=== PATIENT | male | born 1970 | race Caucasian/White ===

== ENCOUNTER → 2018-03-19 | Outpatient (CLI) | payer OTHER ==
--- NOTE | ~2018-03-19 | 2DMMODE ---
[facility] [address] 2 D/M-MODE ECHOCARDIOGRAM Name: WANG ELIAS Room #: [facility]#: [id number] Admission: 03/19/18 Attend Phys: Kit Orellana Discharge: Date of : 72 Date of Service: 03/19/18 1420 Report #: [id number] THIS REPORT FOR: //name// APPROVED REPORT Study performed: 03/19/2018 13:01:21 EXAM: Comprehensive 2D, Doppler, and color-flow Echocardiogram Patient Location: Out-Patient Status: routine BSA: 2.11 HR: 75 bpm BP: 140/90 mmHg Rhythm: NSR Other Information Study Quality: Good Indications Palpitations Hypertension/HDD 2D Dimensions RVDd: 33.03 mm IVSd: 9.44 (7-11mm) LVOT Diam: 23.06 (18-24mm) LVDd: 59.29 mm PWd: 10.10 (7-11mm) Ascending Ao: 32.69 (22-36mm) LVDs: 40.60 (25-40mm) Aortic Root: 35.86 mm IVC: 18.00 mm Volumes Left Atrial Volume (Systole) Single Plane 4CH: 31.17 mL Single Plane 2CH: 29.98 mL LA ESV Index: 17.64 mL/m2 Aortic Valve AoV Peak Candelario.: 1.39 m/s AO Peak Gr.: 7.69 mmHg LVOT Max P.75 mmHg LVOT Max V: 1.20 m/s SYDNEY Vmax: 3.61 cm2 Mitral Valve E/A Ratio: 1.3 MV Decel. Time: 239.10 ms [facility] [address] [place] [address] 2 D/M-MODE ECHOCARDIOGRAM Name: WANG ELIAS Room #: [facility]#: [id number] Admission: 03/19/18 Attend Phys: Kit Orellana Discharge: Date of : 72 Date of Service: 03/19/18 1420 Report #: [id number] MV E Max Candelario.: 0.60 m/s MV A Candelario.: 0.45 m/s MV PHT: 69.34 ms IVRT: 100.35 ms Pulmonary Valve PV Peak Candelario.: 0.84 m/s PV Peak Gr.: 2.83 mmHg Pulmonary Vein P Vein S: 0.67 m/s P Vein D: 0.50 m/s P Vein S/D Ratio: 1.34 Tricuspid Valve RAP Estimate: 5.00 mmHg Left Ventricle The left ventricle is normal size. There is normal left ventricular wall thickness. The left ventricular systolic function is normal. The left ventricular ejection fraction is within the normal range. LVEF is 60-65%. The left ventricular diastolic function is normal. Right Ventricle The right ventricle is normal size. The right ventricular systolic function is normal. Atria The left atrium size is normal. The right atrium size is normal. Aortic Valve The aortic valve is normal in structure. No aortic regurgitation is present. There is no aortic valvular stenosis. Mitral Valve The mitral valve is normal in structure. Mild mitral regurgitation. No evidence of mitral valve stenosis. Tricuspid Valve The tricuspid valve is normal in structure. Trace tricuspid regurgitation. Unable to assess PA pressure. Pulmonic Valve Pulmonic valve is not well visualized. Trace to mild pulmonic regurgitation. [facility] [place] [employer] [address] 2 D/M-MODE ECHOCARDIOGRAM Name: WANG ELIAS Room #: [facility]#: [id number] Admission: 03/19/18 Attend Phys: Kit Orellana Discharge: Date of : 72 Date of Service: 03/19/18 1420 Report #: [id number] Great Vessels The aortic root is normal in size. IVC is normal in size and collapses >50% with inspiration. Pericardium There is no pericardial effusion. <Conclusion> The left ventricle is normal size. There is normal left ventricular wall thickness. The left ventricular systolic function is normal. The left ventricular diastolic function is normal. The right ventricle is normal size. The left atrium size is normal. The aortic valve is normal in structure. Mild mitral regurgitation. Trace tricuspid regurgitation. Unable to assess PA pressure. <ELECTRONICALLY SIGNED> By: Neri Jensen MD 03/19/18 142 19 142 Neri Jensen MD /INF
== END ==
LOC: CV 12:59
DX: I34.0 Nonrheumatic mitral (valve) insufficiency (principal); I10 Essential (primary) hypertension

== ENCOUNTER 2019-08-31 09:44 | Emergency (ER) | payer OTHER ==
[~2019-08-31] VITALS: Ht 180.3 cm; Wt 93.0 kg
[2019-08-31 09:48] VITALS: BP 140/98
[2019-08-31] MEDS ORDERED: NOHOMEMEDICATIONS (09:56)
[2019-08-31] MEDS ORDERED: NORCO 5-325 TA1 EAC1 PO (10:23)
[2019-08-31] MEDS ORDERED: ERYTHROMYCIN E3.5 G3 OPHTHALMIC (10:23)
== END 2019-08-31 10:29 | disposition home or self-care (01) ==
LOC: ER 09:44
DX: S05.02XA Injury of conjunctiva and corneal abrasion without foreign body, left eye, initial encounter (principal); H11.32 Conjunctival hemorrhage, left eye; F17.210 Nicotine dependence, cigarettes, uncomplicated; Y04.2XXA Assault by strike against or bumped into by another person, initial encounter; Y93.89 Activity, other specified; Y92.89 Other specified places as the place of occurrence of the external cause; Y99.8 Other external cause status